=== PATIENT | male | born 2005 | race Caucasian/White ===

== ENCOUNTER 2023-02-16 17:02 | Emergency (ER) | payer MEDICAID | END 2023-02-16 18:01 | disposition home or self-care (01) | LOC: JP.ED 17:02 | DX: K21.9 Gastro-esophageal reflux disease without esophagitis (principal); R13.10 Dysphagia, unspecified; R00.2 Palpitations; R03.0 Elevated blood-pressure reading, without diagnosis of hypertension; R09.89 Other specified symptoms and signs involving the circulatory and respiratory systems; Z86.16 Personal history of COVID-19; Z79.899 Other long term (current) drug therapy | CPT/HCPCS: 80305-QW; 93005; 93010; 99283; 99285 ==